=== PATIENT | female | born 1970 ===

== ENCOUNTER 2016-08-29 11:23 | Day surgery (SDC) | payer OTHER ==
[2016-08-22 09:36] VITALS: BMI 32.1
--- NOTE | 2016-08-29 12:00 | CP.SDSHP ---
Same Day Surgery H & P - History Proposed Procedure: right bunion correction Pre-Op Diagnosis: right hallux abductovalgus - Previous Medical/Surgical History Previous Surgical History: cesarian sections x3 - Allergies Allergies: Allergies No Known Allergies Allergy (Verified 05/27/16 10:29) - Physical Exam Vital Signs: Vital Signs 08/29/16 11:53 Temperature 97.7 F Pulse Rate 74 Respiratory 18 Rate Blood Pressure 124/50 L O2 Sat by Pulse 100 Oximetry Mental Status: Alert & Oriented x3 Neuro: WNL Heart: WNL Lungs: WNL GI: WNL - {Optional Preform as Required} Integument: WNL Ortho: Other (hav noted to right foot) - Impression Impression: Pt was seen and examined in SDS. All Pre-op testing and clearance was in the chart. Pt has exhausted all conservative treatment at this time and is opting for surgical intervention. Pt was explained procedure and post- operative course. NPO status confirmed. All pt's questions were answered to satisfaction. No guarantees were made. Pt understands all risks, benefits and complications of procedure. Pt will follow-up with Dr. Snyder Pt. Evaluated Today:Candidate for Anesthesia & Procedure: Yes - Date & Time Date: 08/29/16 Time: 12:00 Short Stay Discharge - Short Stay Discharge Admitting Diagnosis/Reason for Visit: M20.11 Disposition: HOME/ ROUTINE Referrals: Desirae Clements MD [Primary Care Provider] - Podiatry Clinic [Outside] Instructions: RICE Therapy (GEN), Oxycodone/Acetaminophen (By mouth), Cephalexin (By mouth) Additional Instructions (Diet, Activity): -Patient in good condition for discharge home. Pt to resume medications per medical reconciliation. Resume regular diet. Please keep dressing clean, dry, & intact to surgical site, use plastic bag over bandage for showering, wear CAM boot at all times when ambulating, call clinic if you see signs of infection (redness, swelling, malodor), please make an appointment to see Dr. Roa in clinic within 1 week for post-op check. You will be given prescriptions for post-operative medication on the day of surgery, after your surgery is complete. It is your responsibility as the patient to bring us any forms or documents you need filled out and/or signed. If you need to speak to a nurse in our clinic please call [phone] and someone will answer the phone Monday from 9AM 5PM. Please leave a message at all other times. If you need to fax our clinic a document, our fax number is: [phone]. For all after-hour concerns: The on-call pager number is . The pager is held by a podiatry resident 31/10. You can use this to contact the resident physicians if your have any serious concerns either before or after your surgery. Examples of serious after-hour concerns are foul smelling odor with purulent drainage, completely saturated with blood dressings , tight cast that you cannot fit two fingers into, and individual ascending red streaks up the leg. Please keep in mind that prescriptions cannot be signed nor called into the pharmacy by residents of the [facility]. As the patient, it is your job to schedule a post-operative appointment at our clinic. The appointment scheduling phone number is: . Progress Note/Discharge Note with Instructions: - Patient evaluated bedside in recovery s/p surgical procedure. - After surgical procedure patient in NAD - (+) Void, (+) Appetite - Capillary refill time <3s and NVSI intact. - Patient denies complaints at this time - Post operative instructions and plan of care explained to patient at length. - Pt. acknowledges understanding. - Patient stable for DC per podiatric surgery
--- NOTE | 2016-08-29 12:02 | CP.PCM.PN ---
Subjective - Date & Time of Evaluation Date of Evaluation: 08/29/16 Time of Evaluation: 12:00 - Subjective Subjective: 45 year old female with no significant PMHx presents to [facility] for right bunion surgery with Dr. Roa. Patient states that the right foot gives her a lot of pain when she walks. She has exhausted conservative treatment and now opts for surgical intervention. Patients NPO status confirmed. She denies n/v/f/c/ sob/cp. Objective - Vital Signs/Intake and Output Vital Signs (last 24 hours): Temp Pulse Resp BP Pulse Ox 97.7 F 74 18 124/50 L 100 08/29/16 11:53 08/29/16 11:53 08/29/16 11:53 08/29/16 11:53 08/29/16 11:53 - Constitutional Appears: Well, Non-toxic, No Acute Distress - Extremities Exam Additional comments: right lower extremity focused exam: Vasc:DP and PT pulses palpable 2/4 b/l. CFT < 3 seconds to all digits b/l. Skin temperature warm to warm from proximal to distal b/l. Neuro: Gross sensation intact b/l. Derm: Skin is well hydrated. No open lesions noted. Nails 1-5 b/l WNL for thickness and lenght. Webspaces 1-4 b/l are CDI. Ortho:HAV defromity noted to right foot - Neurological Exam Neurological Exam: Alert, Awake, Oriented x3 - Psychiatric Exam Psychiatric exam: Normal Affect, Normal Mood Assessment and Plan - Assessment and Plan (Free Text) Assessment: 45 year old female with right HAV Plan: Pt was seen and examined in [facility] NPO status confirmed All Pre-op testing and clearance was in the chart Pt has exhausted all conservative treatment at this time and is opting for surgical intervention Pt was explained procedure and post-operative course All pt's questions were answered to satisfaction No guarantees were made Pt understands all risks, benefits and complications of procedure Pt will follow-up with Dr. Roa
[2016-08-29] MEDS ORDERED: Dexamethasone 4 mg/1 ml ONE (12:52)
[2016-08-29] MEDS ORDERED: Bupivacaine 0.5% Inj(30mL) ONE (12:53)
[2016-08-29] MEDS ORDERED: Lidocaine 1% Inj (20ml) ONE (12:53)
[2016-08-29] MEDS ORDERED: Midazolam 2 MG/2 ML VIAL ONE (12:54)
[2016-08-29] MEDS ORDERED: Propofol 10 mg/ml Inj (20 ML) ONE (12:54)
[2016-08-29] MEDS ORDERED: Lactated Ringer's 1,000 ML IV ONE (13:20)
[2016-08-29] MEDS ORDERED: Bupivacaine 0.5% 50 ML IJ ONE (13:25)
[2016-08-29] MEDS ORDERED: Lactated Ringer's 500 ML IV ONE (14:58)
[2016-08-29] MEDS ORDERED: Liquid Adhesive TOP ONE (14:59)
[2016-08-29] MEDS ORDERED: Oxycodone/Acetaminophen 5/325 mg Tab PO PRN ×2 (15:16)
--- NOTE | 2016-08-29 15:19 | PCM.SURG1 ---
Surgeon's Initial Post Op Note - Surgeon's Notes Surgeon: Dr. Roa DPM Mud Analysis Well Logging Operator: Dr. Bills DPM PGY1, Dora MS4 Type of Anesthesia: IV Sedation, Local Pre-Operative Diagnosis: right foot painful bunion Operative Findings: see dictation. I:16 mL 0.5% marcaine. M: 12 mm 2.7 synthes cortical screw, 2-0,3-0,4-0 vicryl, 4-0 prolene Post-Operative Diagnosis: same Operation Performed: right foot bunionectomy Specimen/Specimens Removed: none Estimated Blood Loss: EBL {In ML}: 2 Blood Products Given: N/A Drains Used: No Drains Post-Op Condition: Good Date of Surgery/Procedure: 08/29/16 Time of Surgery/Procedure: 15:19
[2016-08-29] MEDS ORDERED: Lactated Ringer's 1,000 ML IV SCH (15:46)
[2016-08-29 17:43] VITALS: RESP 18
[2016-08-29] MEDS ORDERED: Oxycodone/Acetaminophen 5/325 mg Tab PO ONE (18:45)
[2016-08-29 19:38] VITALS: BP 110/53; PULSE 80; TEMP 98.3; O2SAT 97
--- NOTE | 2016-08-29 19:38 | OP ---
PROCEDURE DATE: 08/29/2016 SURGEON: Dr. Kristopher Roa. ELECTRIC DISTRIBUTION CHECKER: Dr. Awilda Bills. TIMBER CUTTER: Dr. Escudero. ANESTHESIA: IV sedation with local. PREOPERATIVE DIAGNOSIS: Right foot painful bunion deformity. POSTOPERATIVE DIAGNOSIS: Right foot painful bunion deformity. PROCEDURE PERFORMED: Right foot first metatarsal osteotomy with internal fixation. INDICATIONS: The patient is a 45-year-old female with the above diagnosis. The patient has exhauste d conservative treatment at this time and now requests surgical intervention. The patient signed the consent after careful explanation of risks, benefits, complication and alternatives for surgical pro cedure. No guarantees were given nor implied. One gram of Ancef IV was given to the patient a half hour prior to the procedure. N.p.o. status was confirmed prior to taking the patient to the OR. PREPARATION: The patient was brought to the operating room table and placed on the operating room ta ble in a supine position. A well-padded pneumatic ankle tourniquet was placed to the patient's right ankle in a supramalleolar position. After induction of IV sedation, the patient received a total of 16 mL of 0.5% Marcaine plain in a local block fashion to the right foot. Once local anesthesia was achieved, the right foot was then prepped and draped in the usual sterile manner. Esmarch was not us ed in this procedure. Pneumatic ankle tourniquet was then inflated to 250 mmHg and procedure began. PROCEDURE: Attention was directed to the dorsal aspect of the first metatarsal head, right foot, whe re an approximately 6 cm linear longitudinal incision was made medial and parallel to the tendon of t he extensor hallucis longus and involved the contour of the deformity. The incision was deepened thr ough the subcutaneous tissue using sharp and blunt dissection. Care was taken to identify and retrac t all the vital neurovascular structures. All bleeders were cauterized and ligated as necessary. At this time, an inverted L-type capsulotomy was performed over the dorsal aspect of the first metatars ophalangeal joint. The periosteal and capsular structures were then carefully dissected free of thei r osseous attachments and reflected medially and laterally, thus exposing the head of the first metat arsal into the operative site. Next, utilizing an oscillating bone saw, the dorsal and medial promin ences were resected and passed from the operating field. All rough edges were then smoothed down wit h a bone rasp. Attention was then directed to the medial aspect of the first metatarsal head. Next, utilizing oscillating bone saw, a V-type osteotomy was created in the metaphyseal region of the bone . The apex of the osteotomy pointed distally with the arms pointing proximal plantarly and proximal dorsally. Upon completion of the osteotomy, the capital fragment was distracted and shifted laterall y into a more corrected position and impacted upon the first metatarsal shaft. At this time, two 0.0 45 inch K-wire was driven from the dorsal to plantar across the osteotomy site to serve as temporary fixation. Next, the distal K-wire was removed and by following standard AO principles and techniques , a 2.7 x 14 mm cortical screw was inserted into the distal hole across the osteotomy site with excel lent compression. Next, the proximal K-wire was removed and a drill bit was used to create a guide f or Orthosorb. Next utilizing the Orthosorb depth gauge, an appropriate depth of the proximal hole wa s measured and a 1.3 x 14 mm Orthosorb was inserted into the proximal hole snug and flush to the bone . Attention was then directed to the remaining medial bone shelf, which was resected utilizing the o scillating bone saw and passed from the operative site. Correction of the deformity was assessed at this time and was noted to be excellent. The wound was then flushed with copious amount of sterile n ormal saline solution. The periosteal and capsular structures were then reapproximated and coapted u tilizing #2-0 and #3-0 Vicryl. The subcutaneous tissues were then reapproximated and coapted utilolivier ng #4-0 Vicryl. The subcuticular skin was then reapproximated and coapted utilizing #4-0 Prolene in a continuous running suture technique with a bridge in the middle. POSTOPERATIVE CONDITION: The patient tolerated the anesthesia and procedure well and was escorted to the recovery room with vital signs stable and neurovascular status intact to the right foot. This p atient will follow up with Dr. Roa at [facility]. AWILDA BILLS DPM Kristopher Roa DPM cc: [id number] TT: 08/29/2016 19:37:31 dn
--- NOTE | 2016-08-30 10:46 | RAD ---
Indication: Status post right foot surgery Right foot radiographs Comparison: Right foot radiographs performed 06/23/16 Findings: Status post recent 1st metatarsal osteotomy for bunionectomy with 1 cortical screw providing stabilization at the osteotomy site. Soft tissue swelling. Subcutaneous emphysema. No significant callus formation is identified at this time. Impression: Evidence of recent bunionectomy involving the right foot with very little callus formation at this time.
== END 2016-08-29 19:46 | disposition home or self-care (01) ==
LOC: H.OPSURG 11:23
PROVIDERS: ATTEND Podiatrist Foot & Ankle Surgery
DX: M20.11 Hallux valgus (acquired), right foot (principal); M21.611 Bunion of right foot

== ENCOUNTER 2017-08-31 17:58 | Emergency (ER) | payer OTHER ==
[2017-08-31 18:51] VITALS: RESP 18; TEMP 98.1; O2SAT 100
[2017-08-31 18:54] VITALS: BMI 29.2
[2017-08-31] MEDS ORDERED: Sodium Chloride 0.9% 1,000 ML IV STA (19:16)
--- NOTE | 2017-08-31 19:38 | ED PDOC ---
HPI: Headache Time Seen by Provider: 08/31/17 19:16 Chief Complaint (Nursing): Headache Chief Complaint (Provider): Headache History Per: Patient History/Exam Limitations: no limitations Onset/Duration Of Symptoms: Days (x3) Current Symptoms Are (Timing): Still Present Additional Complaint(s): 46 y/o female with no significant pmhx, who presents to the ED for evaluation of headache x3 days. Patient states the headache is localized to the frontal region, and is also complaining of nausea. She reports taking Tylenol and Motrin with no relief of symptoms. Patient denies any similar episodes in the past. PMD: None provided Past Medical History Reviewed: Historical Data, Nursing Documentation, Vital Signs Vital Signs: Last Vital Signs Temp 98.1 F 08/31/17 18:50 Pulse 73 08/31/17 18:50 Resp 18 08/31/17 18:50 BP 123/80 08/31/17 18:50 Pulse Ox 100 08/31/17 18:50 - Medical History PMH: No Chronic Diseases - Surgical History Surgical History: No Surg Hx - Family History Family History: States: Unknown Family Hx - Home Medications Home Medications: Ambulatory Orders Medication Instructions Recorded Cephalexin [Keflex] 500 mg PO TID 08/29/16 Ibuprofen [Motrin] 400 mg PO PRN PRN 08/29/16 oxyCODONE/Acetaminophen [Percocet 5 - 325 mg PO .4-6HRS PRN 08/29/16 5/325 mg Tab] - Allergies Allergies/Adverse Reactions: Allergies Allergy/AdvReac Type Severity Reaction Status Date / Time No Known Allergies Allergy Verified 05/27/16 10:29 Review of Systems ROS Statement: Except As Marked, All Systems Reviewed And Found Negative Gastrointestinal: Positive for: Nausea Neurological: Positive for: Headache Physical Exam - Reviewed Nursing Documentation Reviewed: Yes Vital Signs Reviewed: Yes - Physical Exam Appears: Positive for: Non-toxic, No Acute Distress Head Exam: Positive for: ATRAUMATIC, NORMAL INSPECTION, NORMOCEPHALIC Skin: Positive for: Normal Color Eye Exam: Positive for: Normal appearance, EOMI, PERRL ENT: Positive for: Normal ENT Inspection Neck: Positive for: Normal Cardiovascular/Chest: Positive for: Regular Rate, Rhythm Respiratory: Positive for: Normal Breath Sounds. 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 Negative for : Motor/Sensory Deficits, Aphasia, Facial Droop - Laboratory Results Result Diagrams: 08/31/17 19:38 08/31/17 19:38 - ECG O2 Sat by Pulse Oximetry: 100 (RA) Pulse Ox Interpretation: Normal Medical Decision Making Medical Decision Makin:15 Plan: --CT Head w/o contrast --CMP --CBC --1LNS --Reglan 10mg IV --Toradol 15mg IVP Pt reports feeling better on re-evaluation. Scribe Attestation: Documented by Issa Ramírez, acting as a scribe for Darlene Nuñez PA-C. MD Scribe Attestation: All medical record entries made by the Scribe were at my direction and personally dictated by me. I have reviewed the chart and agree that the record accurately reflects my personal performance of the history, physical exam, medical decision making, and the department course for this patient. I have also personally directed, reviewed, and agree with the discharge instructions and disposition. Disposition - Clinical Impression Clinical Impression: Headache - Patient ED Disposition Is Patient to be Admitted: No Counseled Patient/Family Regarding: Diagnosis, Need For Followup - Disposition Referrals: [facility] [Outside] Disposition: Routine/Home Disposition Time: 21:02 Condition: STABLE Instructions: Headache, Adult Forms: [employer] (Slovenian) Print Language: MONGOLIAN
[2017-08-31 19:55] LABS: ALB/GLOB RATIO 1.1 (1.0-2.1); ALBUMIN 3.9 g/dL (3.5-5.0); ALT/SGPT 71 U/L (9-52); AST/SGOT 52 U/L (14-36); BLOOD UREA NITROGEN 13 mg/dl (7-17); CALCIUM 9.2 mg/dL (8.4-10.2); GFR AFRICAN-AMERICAN > 60; GFR NON-AFRICAN AMERICAN > 60
[2017-08-31 20:00] LABS: BASO % 0.6 % (0.0-2.0); EOS # 0.1 K/uL (0.0-0.7); EOS % 1.8 % (0.0-4.0); HEMOGLOBIN 11.8 g/dL (12.0-16.0); LYMPH # 2.4 K/uL (1.0-4.3); LYMPH % 32.5 % (20.0-40.0); MEAN CELL VOLUME 77.8 fl (81.0-99.0); MEAN CORPUSCULAR HEMOGLOBIN 25.7 pg (27.0-31.0); MEAN PLATELET VOLUME 9.1 fl (7.2-11.7); MONO # 0.8 K/uL (0.0-0.8); MONO % 10.3 % (0.0-10.0); NEUT # 4.1 K/uL (1.8-7.0); NEUT % 54.8 % (50.0-75.0); RBC 4.61 Mil/uL (3.80-5.20); RED CELL DISTRIBUTION WIDTH 14.5 % (11.5-14.5); WHITE BLOOD COUNT 7.5 K/uL (4.8-10.8)
--- NOTE | 2017-08-31 20:08 | CT ---
EXAM: CT Head Without Intravenous Contrast CLINICAL HISTORY: 46 years old, female; Pain; Headache; Other: Frontal; Additional info: Severe headache TECHNIQUE: Axial computed tomography images of the head/brain without intravenous contrast. All CT scans at this facility use one or more dose reduction techniques, viz.: automated exposure control; ma/kV adjustment per patient size (including targeted exams where dose is matched to indication; i.e. head); or iterative reconstruction technique. Coronal and sagittal reformatted images were created and reviewed. COMPARISON: No relevant prior studies available. FINDINGS: Brain: Punctate calcification right temporal lobe, nonspecific. No hemorrhage. No significant white matter disease. No edema. Ventricles: No hydrocephalus. Bones: Skull is intact. Soft tissues: No acute abnormality as visualized. Sinuses: Partial visualization of mild paranasal sinus mucosal thickening. Mastoid air cells: No mastoid effusion. IMPRESSION: No CT evidence of acute intracranial abnormality. Details/findings as above.
[2017-08-31 21:29] VITALS: BP 145/72; PULSE 70
== END 2017-08-31 21:30 | disposition home or self-care (01) ==
LOC: H.ER 17:58
DX: R51 Headache (principal)
CPT/HCPCS: 70450; 80053; 81025; 85025; 96361; 96374; 96375; 99285; J1885; J2765; J7030

== ENCOUNTER 2018-03-19 16:59 | Emergency (ER) | payer SELFPAY ==
[2018-03-19 17:00] VITALS: BMI 29.2
[2018-03-19 17:39] VITALS: RESP 18; TEMP 98.4; O2SAT 99
--- NOTE | 2018-03-19 19:51 | ED PDOC ---
Upper Extremity Pain/Injury Time Seen by Provider: 03/19/18 17:45 Chief Complaint (Nursing): Upper Extremity Problem/Injury Chief Complaint (Provider): Left shoulder pain History Per: Patient History/Exam Limitations: no limitations Onset/Duration Of Symptoms: Days Current Symptoms Are (Timing): Still Present Quality: Aching Additional Complaint(s): 47 year old female who is right hand dominant presents to the ED for evaluation of left shoulder pain radiating to her back since last week. Patient reports the pain is worse with movement and describes the pain as aching. She took Tylenol and Motrin at home last night with minimal relief; no medications were taken today. 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 Patient denies fever, chest pain, abdominal pain, nausea, headache, vomiting, dizziness, loss of sensation, paresthesias, falls, trauma, prior arm surgery/injury, as well as any other complaints. PMD: Clinic Past Medical History Reviewed: Historical Data, Nursing Documentation, Vital Signs Vital Signs: Last Vital Signs Temp 98.4 F 03/19/18 17:35 Pulse 74 03/19/18 17:35 Resp 18 03/19/18 17:35 BP 130/52 L 03/19/18 17:35 Pulse Ox 99 03/19/18 17:35 - Medical History PMH: No Chronic Diseases - Surgical History Surgical History: Cholecystectomy, (3x) - Family History Family History: States: Unknown Family Hx - Home Medications Home Medications: Ambulatory Orders Medication Instructions Recorded Cephalexin [Keflex] 500 mg PO TID 08/29/16 Ibuprofen [Motrin] 400 mg PO PRN PRN 08/29/16 oxyCODONE/Acetaminophen [Percocet 5 - 325 mg PO .4-6HRS PRN 08/29/16 5/325 mg Tab] Cyclobenzaprine [Cyclobenzaprine 10 mg PO Q8 PRN #12 tab 03/19/18 HCl] RX: Naproxen 500 mg PO BID PRN #20 tab 03/19/18 - Allergies Allergies/Adverse Reactions: Allergies Allergy/AdvReac Type Severity Reaction Status Date / Time No Known Allergies Allergy Verified 03/19/18 17:35 Review of Systems ROS Statement: Except As Marked, All Systems Reviewed And Found Negative Constitutional: Negative for: Fever Cardiovascular: Negative for: Chest Pain, Palpitations Gastrointestinal: Negative for: Nausea, Vomiting, Abdominal Pain Musculoskeletal: Positive for: Shoulder Pain (left) Neurological: Negative for: Headache, Dizziness Physical Exam - Reviewed Nursing Documentation Reviewed: Yes Vital Signs Reviewed: Yes - Physical Exam Comments: GENERAL APPEARANCE: Patient is awake, alert, oriented x 3, in no acute distress, resting comfortably SKIN: Warm, dry; (-) cyanosis. CHEST AND RESPIRATORY: (-) rales, (-) rhonchi, (-) wheezes; breath sounds equal bilaterally. HEART AND CARDIOVASCULAR: (-) irregularity UPPER EXTREMITY: (+) full ROM of left shoulder with pain on abduction and extension. (+) tenderness to anterior left shoulder and trapezius. (+) muscle spasm to left trapezius. (+) remainder of upper extremity is non-tender with full ROM, sensation intact throughout, capillary refill and distal pulses bilaterally. (-) bone deformity, warmth, erythema, crepitus (-) distal neurovascular deficit NEURO AND PSYCH: Mental status as above. Gait: steady. Speech: clear. (-) facial asymmetry - ECG O2 Sat by Pulse Oximetry: 99 (RA) Pulse Ox Interpretation: Normal Medical Decision Making Medical Decision Making: Time: 1914 Initial impression: acute shoulder pain, muscle spasm of the shoulder Initial plan: Toradol 30mg Valium 5mg ( not driving home) Reevaluation 2100 On re-evaluation, patient reports improvement of symptoms. On exam, patient remains AAOx3, in no acute distress. Lungs clear to auscultation, cardiac RRR, repeat neuro exam shows no focal findings. Vitals stable. Lab/Diagnostic results d/w the patient in great detail. Diagnosis of acute shoulder pain/muscle spasm of shoulder d/w the patient. Based on history, exam and diagnostic results, plan will be for outpatient follow up with PMD/ortho. Patient instructed to follow-up with pmd / referral provided / the clinic in 1- 2 days without fail. Advised to take medication as prescribed. Return to the emergency room at any time for any new or worsening symptoms. Patient states she fully agrees with and understands discharge instructions. States that she agrees with the plan and disposition. Verbalized and repeated discharge instructions and plan. I have given the patient opportunity to ask any additional questions. Scribe Attestation: Documented by Mis Staton, acting as a scribe for Janie Yañez PA-C. Provider Scribe Attestation: All medical record entries made by the Scribe were at my direction and personally dictated by me. I have reviewed the chart and agree that the record accurately reflects my personal performance of the history, physical exam, medical decision making, and the department course for this patient. I have also personally directed, reviewed, and agree with the discharge instructions and disposition. Disposition - Clinical Impression Clinical Impression: Shoulder pain, acute, Muscle spasm of left shoulder - Patient ED Disposition Is Patient to be Admitted: No Counseled Patient/Family Regarding: Studies Performed, Diagnosis, Need For Followup, Rx Given - Disposition Referrals: Everette Marin III, MD [Staff Provider] - [facility] [Outside] Disposition: Routine/Home Disposition Time: 21:00 Condition: STABLE Additional Instructions: La atencin mdica de emergencia que recibi hoy se dirigi a ashlie sntomas agudos. Si le recetaron algn medicamento, llnelo y tmelo segn las indicaciones. Los sntomas pueden tardar varios pratt en resolverse. Regrese al Departamento de Emergencias si ashlie sntomas empeoran, no mejoran o si tiene otros problemas. Comunquese con evrin mdico dentro de 2 pratt para altagracia nueva evaluacin y gus un seguimiento o llame a luca de los mdicos / clnicas a los que vanessa sido referido y que figuran en el formulario de Informacin de visita al paciente que se incluye en ervin paquete de sadie. Lleve todos los documentos que le entregaron al momento del sadie junto con todos los medicamentos que est tomando para ervin visita de seguimiento. Nuestro tratamiento no puede reemplazar la atencin mdica continua por parte de un proveedor de atencin primaria (PCP) fuera del departamento de emergencias. Prescriptions: Cyclobenzaprine [Cyclobenzaprine HCl] 10 mg PO Q8 PRN #12 tab PRN Reason: Muscle Spasm RX: Naproxen 500 mg PO BID PRN #20 tab PRN Reason: Pain, Moderate (4-7) Instructions: Muscle Spasms (DC), Shoulder Pain (DC) Forms: [employer] (Divehi), [facility] ED School/Work Excuse Print Language: [place] ISLANDER - POA Present On Arrival: None
[2018-03-19 20:50] VITALS: BP 128/78; PULSE 70
== END 2018-03-19 21:17 | disposition home or self-care (01) ==
LOC: H.ER 16:59
DX: M25.512 Pain in left shoulder (principal); M62.838 Other muscle spasm
CPT/HCPCS: 96372; 99283; J1885

== ENCOUNTER 2018-08-27 08:01 | Emergency (ER) | payer SELFPAY ==
[2018-08-27 08:10] VITALS: BMI 33.3
[2018-08-27] MEDS ORDERED: Sodium Chloride 0.9% 1,000 ML IV STA (08:41)
--- NOTE | 2018-08-27 08:43 | ED PDOC ---
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 Patient states diarrhea started Monday night all day till Monday morning. She reports it comes and goes and reports she took Tylenol without relief. She is also complaining of nausea with subjective fever. Patient denies any urinary symptoms. Voyce: # [id number] [place] PMD: [facility] Past Medical History Reviewed: Historical Data, Nursing Documentation, Vital Signs Vital Signs: Last Vital Signs Temp 98.5 F 08/27/18 08:09 Pulse 114 H 08/27/18 08:09 Resp 16 08/27/18 08:09 BP 121/78 08/27/18 08:09 Pulse Ox 98 08/27/18 08:09 - Surgical History Surgical History: Cholecystectomy, (3x) - Family History Family History: States: Unknown Family Hx - Home Medications Home Medications: Ambulatory Orders Medication Instructions Recorded Cephalexin [Keflex] 500 mg PO TID 08/29/16 Ibuprofen [Motrin] 400 mg PO PRN PRN 08/29/16 oxyCODONE/Acetaminophen [Percocet 5 - 325 mg PO .4-6HRS PRN 08/29/16 5/325 mg Tab] Cyclobenzaprine [Cyclobenzaprine 10 mg PO Q8 PRN #12 tab 03/19/18 HCl] Naproxen 500 mg PO BID PRN #20 tab 03/19/18 Dicyclomine [Bentyl] 20 mg PO QID PRN #10 tab 08/27/18 - Allergies Allergies/Adverse Reactions: Allergies Allergy/AdvReac Type Severity Reaction Status Date / Time No Known Allergies Allergy Verified 03/19/18 17:35 Review of Systems ROS Statement: Except As Marked, All Systems Reviewed And Found Negative Constitutional: Positive for: Fever Gastrointestinal: Positive for: Nausea, Abdominal Pain, Diarrhea Genitourinary Female: Negative for: Dysuria, Hematuria Musculoskeletal: Positive for: Back Pain Neurological: Positive for: Headache Physical Exam - Reviewed Nursing Documentation Reviewed: Yes Vital Signs Reviewed: Yes - Physical Exam Appears: Positive for: Well, Non-toxic, No Acute Distress Head Exam: Positive for: ATRAUMATIC, NORMAL INSPECTION, NORMOCEPHALIC Skin: Positive for: Normal Color, Warm, Dry Eye Exam: Positive for: EOMI, Normal appearance, PERRL ENT: Positive for: Normal ENT Inspection Neck: Positive for: Normal, Painless ROM, Supple Cardiovascular/Chest: Positive for: Regular Rate, Rhythm. Negative for: Murmur Respiratory: Positive for: Normal Breath Sounds. Negative for: Wheezing Gastrointestinal/Abdominal: Positive for: Normal Exam, Soft, Tenderness (LLQ AND LUQ ). Negative for: Guarding, Rebound Back: Positive for: Normal Inspection, R CVA Tenderness. Negative for: L CVA Tenderness Extremity: Positive for: Normal ROM Neurological/Psych: Positive for: Awake, Alert, Normal Tone, Oriented (x3). Negative for: Motor/Sensory Deficits - Laboratory Results Result Diagrams: 08/27/18 09:30 08/27/18 09:30 - ECG O2 Sat by Pulse Oximetry: 98 Medical Decision Making Medical Decision Making: Time:0840 Impression: Abdominal pain and diarrhea. Plan: -CT -EKG -CMP -ED urine -CBC -PTT -Prothrobim -Morphine 2mg IV -Sodium chloride -Zofran 4mg IV -Urinalysis Accession No. : [id number] Patient Name / ID : DANGELO REDDY / [id number] Exam Date : 08/27/2018 11:40:33 ( Approved ) Study Comment : Sex / Age : F / 47Y Creator : Shantanu Franco MD Dictator : Shantanu Franco MD Sander Machine : Fire Assistant : Shantanu Franco MD Approver2 : Report Date : 08/27/2018 12:50:27 My Comment : Date of service: 08/27/2018 PROCEDURE: CT Abdomen and Pelvis with contrast HISTORY: Left upper quadrant/left lower quadrant pain. Negative test (concurrent with this examination). COMPARISON: None. TECHNIQUE: Intravenous contrast dose: 95 cc Omnipaque 300. Radiation dose: Total exam DLP = 704.51 mGy-cm. This CT exam was performed using one or more of the following dose reduction techniques: Automated exposure control, adjustment of the mA and/or kV according to patient size, and/or use of iterative reconstruction technique. FINDINGS: LOWER THORAX: Unremarkable. LIVER: Unremarkable. No gross lesion or ductal dilatation. GALLBLADDER AND BILE DUCTS: Status post cholecystectomy. No abnormality is seen in the gallbladder fossa. PANCREAS: Unremarkable. No gross lesion or ductal dilatation. SPLEEN: Unremarkable. ADRENALS: Unremarkable. No mass. KIDNEYS AND URETERS: Unremarkable. No hydronephrosis. No solid mass. VASCULATURE: Unremarkable. No aortic aneurysm. No atherosclerotic calcification or mural plaque present. BOWEL: Diverticulosis without an acute inflammatory component or other associated pathologic process. APPENDIX: Normal appendix. PERITONEUM: Unremarkable. No free fluid. No free air. LYMPH NODES: Unremarkable. No enlarged lymph nodes. BLADDER: Unremarkable. REPRODUCTIVE: Anteverted uterus. Fundal fibroid partially calcified 6.3 x 6.3 x 7 cm. Air identified in the lower cervical canal and vagina. Possibly related to instrumentation. BONES: No acute fracture. OTHER FINDINGS: None. IMPRESSION: Enlarged myomatous uterus. Additional benign and/or incidental findings described above. No acute findings related to/ accounting for the clinical presentation. Scribe Attestation: Documented by Eugenia Martínez, acting as a scribe for Jenifer Thornton Provider Scribe Attestation: All medical record entries made by the Scribe were at my direction and personally dictated by me. I have reviewed the chart and agree that the record accurately reflects my personal performance of the history, physical exam, medical decision making, and the department course for this patient. I have also personally directed, reviewed, and agree with the discharge instructions and disposition. Disposition - Clinical Impression Clinical Impression: Abdominal pain, Diarrhea - Disposition Referrals: [facility] [place] [Outside] Disposition: Routine/Home Disposition Time: 13:50 Condition: STABLE Prescriptions: Dicyclomine [Bentyl] 20 mg PO QID PRN #10 tab PRN Reason: Pain, Moderate (4-7) Instructions: Diarrhea in Adolescents and Adults, Acute Abdomen (Belly Pain) Forms: [employer] (Mauritian) Print Language: ROMANIAN
[2018-08-27 09:50] LABS: ALB/GLOB RATIO 1.2 (1.0-2.1); ALBUMIN 4.3 g/dL (3.5-5.0); BLOOD UREA NITROGEN 11 mg/dl (7-17); CALCIUM 8.6 mg/dL (8.4-10.2); GFR NON-AFRICAN AMERICAN > 60
[2018-08-27 09:51] LABS: BASO % 0.3 % (0.0-2.0); EOS % 0.5 % (0.0-4.0); HEMOGLOBIN 13.9 g/dL (12.0-16.0); LYMPH # 0.9 K/uL (1.0-4.3); MEAN CELL VOLUME 79.9 fl (81.0-99.0); MEAN CORPUSCULAR HEMOGLOBIN 26.6 pg (27.0-31.0); MEAN CORPUSCULAR HGB CONC 33.3 g/dL (33.0-37.0); MEAN PLATELET VOLUME 9.6 fl (7.2-11.7); MONO # 0.4 K/uL (0.0-0.8); MONO % 9.5 % (0.0-10.0); NEUT # 3.2 K/uL (1.8-7.0); NEUT % 69.7 % (50.0-75.0); NRBC % 0.1 % (0.0-0.0); RBC 5.21 Mil/uL (3.80-5.20); RED CELL DISTRIBUTION WIDTH 14.6 % (11.5-14.5); WHITE BLOOD COUNT 4.6 K/uL (4.8-10.8)
[2018-08-27 09:53] LABS: ALT/SGPT 75 U/L (9-52); AST/SGOT 117 U/L (14-36)
[2018-08-27 10:06] LABS: INR 1.1; PROTHROMBIN TIME 12.9 Seconds (9.8-13.1)
[2018-08-27 10:09] LABS: PARTIAL THROMBOPLASTIN TIME 33.6 Seconds (25.6-37.1)
[2018-08-27] MEDS ORDERED: Sodium Chloride 0.9% 50 ML IV ONE (11:37)
[2018-08-27] MEDS ORDERED: Iohexol 300 100 ML IJ ONE (11:37)
--- NOTE | 2018-08-27 11:49 | CARD ---
APPROVED REPORT Date of service: 08/27/2018 EKG Measurement Heart [id number] <Conclusion> Normal sinus rhythm Normal ECG
[2018-08-27 12:49] LABS: SQUAMOUS EPITHIAL 70 /hpf (0-5); URINE BACTERIA RARE (<OCC); URINE BILIRUBIN SMALL (NEGATIVE); URINE BLOOD SMALL (NEGATIVE); URINE CLARITY TURBID (Clear); URINE GLUCOSE (UA) NEG (NEGATIVE); URINE LEUKOCYTE ESTERASE NEG Leu/uL (Negative); URINE PROTEIN 100 mg/dL (NEGATIVE)
[2018-08-27 12:51] LABS: URINE COLOR YELLOW (YELLOW)
--- NOTE | 2018-08-27 12:53 | CT ---
Date of service: 08/27/2018 PROCEDURE: CT Abdomen and Pelvis with contrast HISTORY: Left upper quadrant/left lower quadrant pain. Negative test (concurrent with this examination). COMPARISON: None. TECHNIQUE: Intravenous contrast dose: 95 cc Omnipaque 300. Radiation dose: Total exam DLP = 704.51 mGy-cm. This CT exam was performed using one or more of the following dose reduction techniques: Automated exposure control, adjustment of the mA and/or kV according to patient size, and/or use of iterative reconstruction technique. FINDINGS: LOWER THORAX: Unremarkable. LIVER: Unremarkable. No gross lesion or ductal dilatation. GALLBLADDER AND BILE DUCTS: Status post cholecystectomy. No abnormality is seen in the gallbladder fossa. PANCREAS: Unremarkable. No gross lesion or ductal dilatation. SPLEEN: Unremarkable. ADRENALS: Unremarkable. No mass. KIDNEYS AND URETERS: Unremarkable. No hydronephrosis. No solid mass. VASCULATURE: Unremarkable. No aortic aneurysm. No atherosclerotic calcification or mural plaque present. BOWEL: Diverticulosis without an acute inflammatory component or other associated pathologic process. APPENDIX: Normal appendix. PERITONEUM: Unremarkable. No free fluid. No free air. LYMPH NODES: Unremarkable. No enlarged lymph nodes. BLADDER: Unremarkable. REPRODUCTIVE: Anteverted uterus. Fundal fibroid partially calcified 6.3 x 6.3 x 7 cm. Air identified in the lower cervical canal and vagina. Possibly related to instrumentation. BONES: No acute fracture. OTHER FINDINGS: None. IMPRESSION: Enlarged myomatous uterus. Additional benign and/or incidental findings described above. No acute findings related to/ accounting for the clinical presentation.
[2018-08-27 14:41] VITALS: BP 148/61; PULSE 90; RESP 17; TEMP 98
[2018-08-31 22:14] VITALS: O2SAT 98
== END 2018-08-27 14:40 | disposition home or self-care (01) ==
LOC: H.ER 08:01
DX: R10.9 Unspecified abdominal pain (principal); R19.7 Diarrhea, unspecified
CPT/HCPCS: 74177; 80053; 81003; 81025; 85025; 85610; 85730; 93005; 96360; 99285; J2270; J2405; J7030; Q9967